=== PATIENT | female | born 1945 | race Caucasian/White ===

== ENCOUNTER → 2016-09-18 | Outpatient (CLI) | payer OTHER ==
--- NOTE | ~2016-09-18 | MY11 ---
[facility]. [facility] A Service of [facility] RADIOLOGY TEXT RESULTS PATIENT: AMBROCIO HINOJOSA LOCATION: [facility] : 47 UNIT #: [id number] AGE: [address]: Kitty Haley MD SEX: F ORDER DR: [id number] [address] [address] [id number] O MR#: [id number] Acc #: [id number] NAME: AMBROCIO HINOJOSA : 1945 SEX: F STUDY DATE/TIME: 09/18/2016 10:58 UNIT: [facility] ROOM: STUDY DESCRIPTION: MY Mammogram Screening Dig Ramakrishna Attending Physician: Kitty Haley M.D. Referring Physician: Kitty Haley M.D. Ordering Physician: Kitty Haley M.D. Primary Care Physician: Kitty Haley M.D. MEDICAL IMAGING REPORT This report is preliminary unless electronic signature is present. EXAM Bilateral digital screening mammogram with CAD, 09/18/2016. INDICATION 71-year-old female for routine screening. No reported problems. No personal history of breast cancer. Family history positive in the patient's mother at age 54. No surgeries. TECHNIQUE CC and MLO views were obtained and reviewed with an FDA-approved CAD device. COMPARISON 07/30/2015, 06/19/2014, 05/19/2013 FINDINGS Breast parenchyma is composed of scattered fibroglandular densities and the pattern is unchanged. There is no new dominant nodule, mass, or suspicious cluster of microcalcifications. Benign calcifications are present in the left breast. There is a subtle asymmetry in the central left breast on the MLO projection. This has been present on prior studies to varying degrees dating back to at least 2011 and is therefore benign. IMPRESSION Benign screening mammogram. 1 year followup recommended. Patients over the age of 40 are entered into a reminder system with target due date for the next mammogram. A result letter will also be sent to the patient. BIRADS: 2 Benign finding. [facility] A Service of [facility] RADIOLOGY TEXT RESULTS PATIENT: AMBROCIO HINOJOSA [facility] [id number] : [birth year] UNIT #: [id number] AGE: [address]: Kitty Haley MD SEX: F ORDER DR: Dictated by... Washington Riggs M.D. THIS IS AN ELECTRONICALLY VERIFIED REPORT Washington Riggs M.D. at 09/18/2016 4:59 PM ABBI/deb TD: 09/18/2016 11:37 JOB #: [id number] MEDICAL IMAGING REPORT Page 1 of 1
== END | disposition home or self-care (01) ==
LOC: SRAD 10:19
DX: Z12.31 Encounter for screening mammogram for malignant neoplasm of breast (principal); Z80.3 Family history of malignant neoplasm of breast
CPT/HCPCS: G0202